=== PATIENT | female | born 1980 | race Caucasian/White ===

== ENCOUNTER 2018-12-19 21:41 | Emergency (ER) | payer SELFPAY ==
[~2018-12-19] VITALS: Ht 165.1 cm; Wt 80.1 kg
[~2018-12-19 21:41] MED LIST: ACET325T33 PO
[2018-12-19 21:43] VITALS: BP 136/71; PULSE 73; RESP 18; Ht 165.1 cm; Wt 80.1 kg
[2018-12-20] MEDS ORDERED: BUTA1CAP38 PO (21:03)
[2018-12-20] MEDS ORDERED: [UNRECOGNIZED DRUG - OTHER] PO (21:20)
[2018-12-20] MEDS ORDERED: ASPI-535 PO (21:20)
[2018-12-20] MEDS ORDERED: [UNRECOGNIZED DRUG - OTHER] PO (21:20)
== END 2018-12-20 00:55 | disposition left against medical advice (07) ==
LOC: FTE 21:41
DX: Z53.21 Procedure and treatment not carried out due to patient leaving prior to being seen by health care provider (principal)

== ENCOUNTER 2018-12-20 16:11 | Emergency (ER) | payer MEDICAID, OTHER ==
[~2018-12-20] VITALS: Wt 78.2 kg
[2018-12-20] MEDS ORDERED: SOD CHLORIDE 0.9% 1,000 ML IV STA (18:03)
[2018-12-20] MEDS ORDERED: DIPHENHYDRAMINE 50 MG INJ IV STA (18:03)
[2018-12-20] MEDS ORDERED: PROCHLORPERAZINE 10 MG INJ IV STA (18:03)
--- NOTE | 2018-12-20 18:44 | ERD ---
ER Documentation Chief Complaint Chief Complaint HEADACHE WITH GENERALIZED WEAKNESS THIS WEEK; SYNCOPAL EPISODE TODAY HPI During the patient's encounter translation services were utilized Language: Martiniquais Source: Video This is a 38-year-old female otherwise healthy presents to the emergency room with several weeks of symptoms. Patient describes intermittent episodes of bandlike headache that is pressure-like, gradual onset and bilateral and bitemporal. The patient also describes pins and needles on her head. She describes a burning sensation down the left upper extremity. At triage it was noted that she had a syncopal episode but she denies this. Consider possible misunderstanding or language barrier. Patient denies any chest pain, pleuritic pain, no sudden onset of headache, no mid back pain. She states that she was just recently in [facility] last week and went to the emergency room for similar symptoms. She states that she had a doctor tell her that there was a white matter problem of her brain and she had an MRI and there might have been a problem with her heart but she is not sure. Patient cannot p rovide any further articulation of this history. Patient describes significant social stressors recently. She states that she is having significant anxiety. ROS All systems reviewed and are negative except as per history of present illness. Medications Home Meds Active Scripts Jvvlfkpqiz-Vqcarnzlhpkhu-Kjovuqcc* (Fioricet*) 50-300-40 Mg Capsule, 1 CAP PO Q4H PRN for HEADACHE, #10 CAP Prov:SAHRA SINGLETON MD 12/20/18 Acetaminophen* (Tylenol*) 325 Mg Tablet, 2 TAB PO Q8 PRN for PAIN AND OR ELEVATED TEMP, #20 TAB Prov:GUME HOLLINS PA-C 03/02/15 Allergies Allergies: Coded Allergies: No Known Allergy (Unverified , 12/20/18) PMhx/Soc History of Surgery: Yes (gallbladder) Anesthesia Reaction: No Hx Neurological Disorder: No Hx Respiratory Disorders: No Hx Cardiac Disorders: No Hx Psychiatric Problems: No Hx Miscellaneous Medical Probl: No Hx Alcohol Use: No Hx Substance Use: No Hx Tobacco Use: No Smoking Status: Never smoker FmHx Family History: No diabetes, No coronary disease Physical Exam Vitals Vital Signs Date Temp Pulse Resp B/P (MAP) Pulse Ox O2 O2 Flow FiO2 Time Delivery Rate 12/20/18 59 14 116/67 96 Room Air 20:10 (83) 12/20/18 79.0 18 18 150/80 99 16:17 (103) Physical Exam General: Tearful, emotionally upset, anxious Head: Normocephalic, atraumatic. Eyes: Pupils equally reactive, EOM intact ENT: Moist mucous membranes Neck: Supple, no lymphadenopathy Respiratory: Lungs clear bilaterally, no distress Cardiovascular: RRR, no murmurs, rubs, or gallops Abdominal: Soft, non-tender, non-distended, no peritoneal signs : Deferred MSK: No edema, no unilateral swelling, 5/5 strength Neurologic: Alert and oriented, moving all extremities, normal speech, no focal weakness, no cerebellar signs, steady gait, no pronator drift Skin: No rash Psych: As described above Result Diagram: 12/20/18181712/20/181817 Results 24 hrs Laboratory Tests Test 12/20/18 18:18 12/20/18 18:20 White Blood Count 6.3 10^3/ul Red Blood Count 5.14 10^6/ul Hemoglobin 14.7 g/dl Hematocrit 42.7 % Mean Corpuscular Volume 83.1 fl Mean Corpuscular Hemoglobin 28.6 pg Mean Corpuscular Hemoglobin Concent 34.4 g/dl Red Cell Distribution Width 11.8 % Platelet Count 231 10^3/UL Mean Platelet Volume 10.1 fl Immature Granulocytes % 0.300 % Neutrophils % 61.1 % Lymphocytes % 29.7 % Monocytes % 5.8 % Eosinophils % 2.8 % Basophils % 0.3 % Nucleated Red Blood Cells % 0.0 /100WBC Immature Granulocytes # 0.020 10^3/ul Neutrophils # 3.9 10^3/ul Lymphocytes # 1.9 10^3/ul Monocytes # 0.4 10^3/ul Eosinophils # 0.2 10^3/ul Basophils # 0.0 10^3/ul Nucleated Red Blood Cells # 0.0 10^3/ul Prothrombin Time 12.4 Sec Prothrombin Time Ratio 1.0 INR International Normalized Ratio 0.91 Activated Partial Thromboplast Time 34.4 Sec Bedside Urine pH (LAB) 5.5 Bedside Urine Protein (LAB) 2+ Bedside Urine Glucose (UA) Negative Bedside Urine Ketones (LAB) Negative Bedside Urine Blood 3+ Bedside Urine Nitrite (LAB) Negative Bedside Urine Leukocyte Esterase (L Negative Sodium Level 141 mmol/L Potassium Level 3.8 mmol/L Chloride Level 106 mmol/L Carbon Dioxide Level 26 mmol/L Anion Gap 9 Blood Urea Nitrogen 9 mg/dl Creatinine 0.70 mg/dl Est Glomerular Filtrat Rate mL/min > 60 mL/min Glucose Level 98 mg/dl Calcium Level 9.8 mg/dl Troponin I < 0.012 ng/ml POC Beta HCG, Qualitative NEGATIVE Current Medications Medications Dose Sig/Hilario Start Time Status Last (Trade) Ordered Route PRN Stop Time Admin Dose Reason Admin Sodium 1,000 ml @ Q1H STAT 12/20/18 DC 12/20/18 Chloride 1,000 mls/hr IV 18:03 18:27 12/20/18 19:02 10 mg ONCE STAT 12/20/18 DC 12/20/18 Prochlorperaz IV 18:03 18:27 ine 12/20/18 18:04 (Compazine Inj) 25 mg ONCE STAT 12/20/18 DC 12/20/18 Diphenhydrami IV 18:03 18:27 ne HCl 12/20/18 18:04 (Benadryl) Procedures/MDM EKG, MONITORS, & DIAGNOSTIC IMAGING: EKG: I reviewed and interpreted a 12-lead EKG. Rhythm: Normal sinus rhythm ST Changes: No contiguous ST segment elevations T waves: No contiguous T wave inversions Impression: No evidence of acute cardiac ischemia Chest x-ray: I reviewed and interpreted a 1 view of the chest Mediastinum: No enlargement Cardiac silhouette: No cardiomegaly Airspace: Clear lung montgomery bilaterally without evidence of pneumothorax Bones: No evidence of fracture CT brain: IMPRESSION: 1. No intracranial hemorrhage, hydrocephalus, or cerebral infarction. RPTAT: EE LAB INTERPRETATION: I reviewed the laboratory testing and it shows no evidence of acute process MEDICAL DECISION MAKING: The patient's clinical exam and history is very consistent with anxiety attack and stress. The patient's headache is unlikely related to serious etiology. The patient does not exhibit any clinical signs or symptoms, and has no risk factors to suggest headache etiology such as subarachnoid hemorrhage, acute vertebral or carotid dissection, intracranial mass, epidural, subdural hematoma, dural venous sinus thrombosis, giant cell arteritis, or pseudotumor cerebri. The patient is describing a globus sensation in her throat and paresthesia of the left upper extremity that is nonspecific. However, the patient is describing a ER visit in [facility] with abnormalities of her brain and potentially her heart. This seems extremely unlikely given her age and risk profile however this would prompt CT imaging of the brain EKG and troponin to evaluate for potential process. ER COURSE: * The patient continues to be well-appearing. Laboratory testing and diagnostic imaging is unrevealing. * In the event based on the patient's presentation as well as the diagnostic imaging laboratory testing the patient does not have any evidence of acute medical emergency. The patient can be safely referred to primary care physician. * Stress reduction techniques discussed. CONSULTATION: None DISPOSITION PLAN: The patient does not have an identifiable emergent medical condition that warrants inpatient hospitalization at this time. The patient is deemed safe for discharge with outpatient follow-up. We discussed follow up with the patient's primary care doctor within 24 to 48 hours as needed. We also discussed return to the emergency room for worsening symptoms or worsening condition. Outpatient referral: None required Discharge Medications: Fioricet Departure Diagnosis: Primary Impression: Headache Headache type: unspecified Headache chronicity pattern: acute headache Intractability: not intractable Qualified Codes: R51 - Headache Additional Impressions: Anxiety reaction Paresthesia Condition: Stable SAHRA SINGLETON MD Dec 20, 2018 18:44
[2018-12-20] MEDS ORDERED: BUTA1CAP38 PO (21:03)
[2018-12-20] MEDS ORDERED: ASPI-535 PO (21:20)
[2018-12-20] MEDS ORDERED: [UNRECOGNIZED DRUG - OTHER] PO (21:20)
[2018-12-20] MEDS ORDERED: [UNRECOGNIZED DRUG - OTHER] PO (21:20)
[2018-12-20 22:04] VITALS: BP 115/81; PULSE 81; RESP 14
== END 2018-12-20 22:28 | disposition home or self-care (01) ==
LOC: E/R 16:11
DX: R51 Headache (principal); R20.2 Paresthesia of skin; R55 Syncope and collapse; F41.1 Generalized anxiety disorder
CPT/HCPCS: 36415; 70450; 80048; 81003; 81025; 84484; 85025; 85610; 85730; 93005; 96374; 96375; 99285; J0780; J1200; J7030